=== PATIENT | female | born 1995 ===

== ENCOUNTER 2016-11-05 11:24 | Emergency (ER) | payer SELFPAY ==
[2016-11-05 11:24] VITALS: O2SAT 100
[2016-11-05 12:01] VITALS: BP 130/83; PULSE 111; RESP 18; TEMP 97.2
== END 2016-11-05 11:58 | disposition home or self-care (01) | DRG 125 ==
LOC: ED 11:24
DX: H10.9 Unspecified conjunctivitis (principal)
CPT/HCPCS: 99282; 99283

== ENCOUNTER 2016-11-06 00:46 | Emergency (ER) | payer SELFPAY ==
[2016-11-06 00:48] VITALS: O2SAT 100
[2016-11-06 01:00] VITALS: BP 134/84; PULSE 106; RESP 16; TEMP 96.6
[2016-11-06] MEDS ORDERED: DIPHENHYDRAMINE 25 MG CAP PO ONE (01:08)
== END 2016-11-06 01:30 | disposition home or self-care (01) | DRG 125 ==
LOC: ED 00:46
DX: H10.33 Unspecified acute conjunctivitis, bilateral (principal); R21 Rash and other nonspecific skin eruption
CPT/HCPCS: 99282; Q0163

== ENCOUNTER 2017-01-17 17:40 | Emergency (ER) | payer MEDICAID ==
[2017-01-17 18:11] VITALS: RESP 16; TEMP 97.5
[2017-01-17 18:20] LABS: BASOPHILS % (AUTO) 1 % (0-3); EOSINOPHILS % (AUTO) 4 % (0-9); HEMATOCRIT 40 % (35-47); MEAN CORPUSCULAR HGB CONC 34.1 gm/dl (32.0-36.0); MEAN CORPUSCULAR VOLUME 85 fL (81-99); MONOCYTES % (AUTO) 3.7 % (0-12); NEUTROPHILS % (AUTO) 63.1 % (37-80)
[2017-01-17] MEDS ORDERED: ALUMINUM/MAGNESIUM 30 ML SUS PO ONE (18:28)
[2017-01-17] MEDS ORDERED: LIDOCAINE HCL 2% (VISCOUS) 20 ML SOL MT ONE (18:28)
[2017-01-17] MEDS ORDERED: ALUMINUM/MAGNESIUM 30 ML SUS ONE (18:31)
[2017-01-17] MEDS ORDERED: LIDOCAINE HCL 2% (VISCOUS) 20 ML SOL ONE (18:32)
[2017-01-17 18:34] LABS: ALBUMIN 3.5 gm/dl (3.4-5.0); CALCIUM 8.9 mg/dl (8.5-10.1); POTASSIUM 3.9 mMol/L (3.5-5.1)
[2017-01-17 19:44] VITALS: O2SAT 99
[2017-01-17 19:45] VITALS: BP 122/68
[2017-01-17 19:46] VITALS: PULSE 91
== END 2017-01-17 19:36 | disposition home or self-care (01) | DRG 392 ==
LOC: ED 17:40
DX: R10.13 Epigastric pain (principal)
CPT/HCPCS: 36415; 80053; 85025; 99283

== ENCOUNTER 2017-03-10 12:30 | Emergency (ER) | payer MEDICAID ==
[2017-03-10 12:30] VITALS: O2SAT 99
[2017-03-10] MEDS ORDERED: KETOROLAC TROMETHAMINE 30 MG/ML SOL IM ONE (13:23)
[2017-03-10] MEDS ORDERED: KETOROLAC TROMETHAMINE 30 MG/ML SOL ONE (13:24)
[2017-03-10 13:36] VITALS: BP 114/77; PULSE 102; RESP 16; TEMP 97.1
[2017-03-10] MEDS ORDERED: LIDOCAINE HCL 2% (VISCOUS) 20 ML SOL MT ONE (13:51)
[2017-03-10] MEDS ORDERED: LIDOCAINE HCL 2% (VISCOUS) 20 ML SOL ONE (14:13)
== END 2017-03-10 14:30 | disposition home or self-care (01) | DRG 159 ==
LOC: ED 12:30
DX: K08.89 Other specified disorders of teeth and supporting structures (principal)
CPT/HCPCS: 96372; 99282; 99283; J1885

== ENCOUNTER 2017-06-12 20:16 | Emergency (ER) | payer OTHER ==
[2017-06-12 20:30] VITALS: BP 132/75; PULSE 98; RESP 18; TEMP 98.2; O2SAT 98
[2017-06-12] MEDS ORDERED: OXYCODONE HYDROCHLORIDE 5 MG TAB PO PRN (21:47)
[2017-06-12] MEDS ORDERED: OXYCODONE HYDROCHLORIDE 5 MG TAB ONE (21:50)
== END 2017-06-12 22:00 | disposition home or self-care (01) | DRG 781 ==
LOC: ED 20:16
DX: O26.892 Other specified pregnancy related conditions, second trimester (principal); M54.31 Sciatica, right side; Z3A.20 20 weeks gestation of pregnancy
CPT/HCPCS: 99282

== ENCOUNTER 2017-08-19 17:56 | Emergency (ER) | payer MEDICAID ==
[2017-08-19 17:56] VITALS: O2SAT 98
[2017-08-19 18:30] VITALS: TEMP 97.3
[2017-08-19 18:41] LABS: BASOPHILS % (AUTO) 0 % (0-3); EOSINOPHILS % (AUTO) 3 % (0-9); HEMATOCRIT 35 % (35-47); MEAN CORPUSCULAR HGB CONC 33.8 gm/dl (32.0-36.0); MEAN CORPUSCULAR VOLUME 89 fL (81-99); MONOCYTES % (AUTO) 5.2 % (0-12); NEUTROPHILS % (AUTO) 73.3 % (37-80)
[2017-08-19 18:46] LABS: APPEARANCE,URINE Clear; BILIRUBIN,URINE NEGATIVE (NEGATIVE); COLOR,URINE Yellow; GLUCOSE, URINE (UA) NEGATIVE (NEGATIVE); KETONES,URINE TRACE (NEGATIVE); LEUKOCYTE ESTERASE ,URINE NEGATIVE (NEGATIVE); NITRATE,URINE NEGATIVE (NEGATIVE); OCCULT BLOOD,URINE NEGATIVE (NEG-TRACE); UROBILINOGEN,URINE 0.2 (0.2-1.0 EU)
[2017-08-19 18:52] LABS: ALBUMIN 2.4 gm/dl (3.4-5.0); CALCIUM 8.8 mg/dl (8.5-10.1)
[2017-08-19 18:53] LABS: RBC,URINE 0-2 (0-3AV/HPF)
[2017-08-19] MEDS ORDERED: ONDANSETRON 4 MG ODT BU ONE (19:39)
[2017-08-19] MEDS ORDERED: APAP/HYDROCODONE 325/5 TAB PO ONE (19:39)
[2017-08-19 19:44] VITALS: BP 124/64; PULSE 100; RESP 18
[2017-08-19] MEDS ORDERED: ONDANSETRON 4 MG ODT ONE (19:47)
[2017-08-19] MEDS ORDERED: APAP/HYDROCODONE 325/5 TAB ONE (19:47)
== END 2017-08-19 20:02 | disposition home or self-care (01) | DRG 781 ==
LOC: ED 17:56
DX: O26.893 Other specified pregnancy related conditions, third trimester (principal); R07.81 Pleurodynia; Z3A.33 33 weeks gestation of pregnancy
CPT/HCPCS: 36415; 80053; 81001; 85025; 99283

== ENCOUNTER 2017-10-08 05:07 | Inpatient (IN) | payer MEDICAID, OTHER ==
[2017-10-08] MEDS: LACTATED RINGERS 1,000 ML IV SCH ×5 (05:20→15:48)
[2017-10-08] MEDS ORDERED: SODIUM CHLORIDE 0.9% 50 ML 25 ML IV PRN (05:44)
[2017-10-08] MEDS ORDERED: CITRIC ACID/SODIUM CITRATE SOL PO SCH (05:45)
[2017-10-08] MEDS ORDERED: OXYTOCIN 10000 MU/ML SOL ONE (06:15)
[2017-10-08] MEDS ORDERED: MORPHINE SULFATE 0.5 MG/ML SOL ONE (06:15)
[2017-10-08] MEDS ORDERED: ONDANSETRON HCL 4 MG/2 ML SOL ONE (06:15)
[2017-10-08] MEDS ORDERED: PHENYLEPHRINE HYDROCHLORIDE 10 MG/ML SOL ONE (06:15)
[2017-10-08] MEDS ORDERED: LACTATED RINGERS 1,000 ML with OXYTOCIN 10000 MU/ML 20 MU IV ONE (06:45)
[2017-10-08] MEDS ORDERED: MIDAZOLAM 2 MG/2 ML SOL ONE (06:52)
[2017-10-08] MEDS: CEFAZOLIN (PREMIX) 1 GM 1 GM/50 ML SOL IV SCH ×2 (07:00→13:29)
[2017-10-08] MEDS ORDERED: FENTANYL 100MCG/2ML SOL ONE ×2 (07:10→07:37)
[2017-10-08] MEDS ORDERED: CEFAZOLIN SODIUM 1 GM PDS ONE ×2 (07:17→13:17)
[2017-10-08 07:42] LABS: APPEARANCE,URINE CLEAR; BILIRUBIN,URINE NEGATIVE (NEGATIVE); COLOR,URINE YELLOW; GLUCOSE, URINE (UA) NEGATIVE (NEGATIVE); KETONES,URINE NEGATIVE (NEGATIVE); LEUKOCYTE ESTERASE ,URINE NEGATIVE (NEGATIVE); NITRATE,URINE NEGATIVE (NEGATIVE); OCCULT BLOOD,URINE NEGATIVE (NEG-TRACE)
[2017-10-08 07:43] LABS: RBC,URINE 0-1 (0-3AV/HPF); WBC,URINE 0-1 (0-5AV/HPF)
[2017-10-08] MEDS ORDERED: DIPHENHYDRAMINE 50 MG/ML SOL ONE ×2 (07:51→14:14)
[2017-10-08] MEDS ORDERED: KETOROLAC TROMETHAMINE 30 MG/ML SOL ONE (08:08)
[2017-10-08] MEDS ORDERED: ONDANSETRON HCL 4 MG/2 ML SOL IV PRN (08:43)
[2017-10-08] MEDS ORDERED: WITCH HAZEL 1 EA PAD TOP PRN (08:43)
[2017-10-08] MEDS ORDERED: FLEET ENEMA PR PRN (08:43)
[2017-10-08] MEDS ORDERED: BISACODYL 10 MG SUP PR PRN (08:43)
[2017-10-08] MEDS ORDERED: METHYLERGONOVINE MALEATE 0.2 MG TAB PO PRN (08:43)
[2017-10-08] MEDS ORDERED: BENZOCAINE/MENTHOL 1 SPR TOP PRN (08:43)
[2017-10-08] MEDS ORDERED: KETOROLAC TROMETHAMINE 30 MG/ML SOL IV PRN (08:43)
[2017-10-08] MEDS: DOCUSATE SODIUM 100 MG SGL PO SCH ×2 (09:00→20:29)
[2017-10-08] MEDS: APAP/HYDROCODONE 325/5 TAB PO PRN ×2 (09:22→13:24)
[2017-10-08] MEDS ORDERED: DIPHENHYDRAMINE 50 MG/ML SOL IV PRN (14:17)
[2017-10-08] MEDS ORDERED: LORAZEPAM 0.5 MG TAB PO ONE (16:26)
[2017-10-08] MEDS ORDERED: LORAZEPAM 0.5 MG TAB ONE (17:27)
[2017-10-08] MEDS ORDERED: APAP/OXYCODONE 325/5 TAB ONE ×2 (17:55→22:18)
[2017-10-08] MEDS: APAP/OXYCODONE 325/5 TAB PO PRN ×2 (18:01→22:21)
[2017-10-08] MEDS ORDERED: NICOTINE 7 MG PATCH TD SCH (20:00)
[2017-10-08] MEDS: DIPHENHYDRAMINE 25 MG CAP PO PRN ×2 (20:28→21:13)
[2017-10-08] MEDS: IBUPROFEN 600 MG TAB PO PRN (21:11)
[2017-10-08] MEDS ORDERED: TEMAZEPAM 15MG 15 MG CAP ONE (22:18)
[2017-10-08] MEDS: TEMAZEPAM 15MG 15 MG CAP PO PRN (22:21)
[2017-10-09] MEDS ORDERED: APAP/OXYCODONE 325/5 TAB ONE ×7 (02:37→19:01)
[2017-10-09] MEDS: APAP/OXYCODONE 325/5 TAB PO PRN ×5 (02:38→19:02)
[2017-10-09] MEDS: IBUPROFEN 600 MG TAB PO PRN ×4 (03:10→22:11)
[2017-10-09] MEDS ORDERED: NICOTINE 7 MG PATCH TD SCH (08:00)
[2017-10-09] MEDS: DIPHENHYDRAMINE 25 MG CAP PO PRN ×2 (08:08→18:34)
[2017-10-09 08:55] LABS: CALCIUM 8.2 mg/dl (8.5-10.1); POTASSIUM 4.1 mMol/L (3.5-5.1)
[2017-10-09] MEDS: DOCUSATE SODIUM 100 MG SGL PO SCH ×2 (09:05→21:43)
[2017-10-09] MEDS ORDERED: HYDROCORTISONE 1% CREAM 1 APPL CRE TOP ONE ×2 (09:38→18:33)
[2017-10-09] MEDS: HYDROCORTISONE 1% CREAM 1 APPL CRE TOP SCH ×3 (09:45→21:44)
[2017-10-09] MEDS ORDERED: OXYCODONE HYDROCHLORIDE 5 MG TAB PO ONE (12:49)
[2017-10-09] MEDS ORDERED: OXYCODONE HYDROCHLORIDE 5 MG TAB ONE ×2 (12:56→21:40)
[2017-10-09] MEDS ORDERED: IBUPROFEN 600 MG TAB ONE (16:08)
[2017-10-09] MEDS ORDERED: DIPHENHYDRAMINE 25 MG CAP ONE (18:32)
[2017-10-09] MEDS ORDERED: OXYCODONE HYDROCHLORIDE 5 MG TAB PO PRN (21:13)
[2017-10-09] MEDS ORDERED: TEMAZEPAM 15MG 15 MG CAP ONE (22:09)
[2017-10-09] MEDS: TEMAZEPAM 15MG 15 MG CAP PO PRN (22:11)
[2017-10-10] MEDS ORDERED: APAP/OXYCODONE 325/5 TAB ONE ×4 (00:48→15:57)
[2017-10-10] MEDS: APAP/OXYCODONE 325/5 TAB PO PRN ×4 (00:49→15:58)
[2017-10-10] MEDS: IBUPROFEN 600 MG TAB PO PRN ×3 (04:17→14:50)
[2017-10-10 07:32] VITALS: O2SAT 96
[2017-10-10] MEDS: DOCUSATE SODIUM 100 MG SGL PO SCH (09:08)
[2017-10-10] MEDS ORDERED: HYDROCORTISONE 1% CREAM 1 APPL CRE TOP ONE (10:07)
[2017-10-10] MEDS: HYDROCORTISONE 1% CREAM 1 APPL CRE TOP SCH (10:12)
[2017-10-10] MEDS ORDERED: INFLUENZA VIRUS VACCINE 0.5 ML SUS IM ONE ×2 (12:32→15:49)
[2017-10-10] MEDS ORDERED: PNEUMOCOCCAL VACCINE 0.5 ML SOL IM ONE ×2 (14:15→15:47)
[2017-10-10 16:11] VITALS: BP 129/79; PULSE 91; RESP 20; TEMP 97.7
== END 2017-10-10 18:35 | disposition home or self-care (01) | DRG 766 ==
LOC: OB 05:07 → PREOBSVTOIN 10:31
PROVIDERS: ADMIT Family Medicine; ATTEND Family Medicine
PROC: 0UB70ZZ Excision of Bilateral Fallopian Tubes, Open Approach (ICD-10-PCS; 2017-10-08)
PROC: 10D00Z1 Extraction of Products of Conception, Low, Open Approach (ICD-10-PCS; principal; 2017-10-08 07:00)
DX: O34.219 Maternal care for unspecified type scar from previous cesarean delivery (principal); Z30.2 Encounter for sterilization; Z37.0 Single live birth; Z3A.39 39 weeks gestation of pregnancy
CPT/HCPCS: 36415; 59025; 80053; 81001; 85018; 90686; 90732; 99070; J0690; J1200; J1885; J2250; J2274; J2405; J2590; J3010; A9270-GY; G0008; J2370

== ENCOUNTER 2017-11-07 17:08 | Emergency (ER) | payer OTHER ==
[2017-11-07 17:31] VITALS: BP 145/98; PULSE 86; RESP 18; TEMP 97.8; O2SAT 99
[2017-11-07 17:40] LABS: APPEARANCE,URINE Cloudy; BILIRUBIN,URINE NEGATIVE (NEGATIVE); COLOR,URINE Yellow; GLUCOSE, URINE (UA) NEGATIVE (NEGATIVE); KETONES,URINE NEGATIVE (NEGATIVE); LEUKOCYTE ESTERASE ,URINE 3+ (NEGATIVE); NITRATE,URINE NEGATIVE (NEGATIVE); OCCULT BLOOD,URINE 2+ (NEG-TRACE); PH,URINE 6.5; UROBILINOGEN,URINE 0.2 (0.2-1.0 EU)
[2017-11-07 17:52] LABS: WBC,URINE TNTC (0-5AV/HPF)
== END 2017-11-07 18:43 | disposition home or self-care (01) | DRG 690 ==
LOC: ED 17:08
DX: N30.00 Acute cystitis without hematuria (principal)
CPT/HCPCS: 81001; 87077; 87088; 87186; 99282

== ENCOUNTER 2017-11-15 17:34 | Emergency (ER) | payer OTHER ==
[2017-11-15 17:55] VITALS: RESP 18; TEMP 98.2
[2017-11-15] MEDS ORDERED: KETOROLAC TROMETHAMINE 30 MG/ML SOL IM ONE (18:31)
[2017-11-15] MEDS ORDERED: ACETAMINOPHEN 500 MG 500 MG TAB PO ONE (18:31)
[2017-11-15] MEDS ORDERED: CYCLOBENZAPRINE 10 MG TAB PO ONE (18:31)
[2017-11-15] MEDS ORDERED: ACETAMINOPHEN 500 MG 500 MG TAB ONE (18:35)
[2017-11-15] MEDS ORDERED: CYCLOBENZAPRINE 10 MG TAB ONE (18:35)
[2017-11-15] MEDS ORDERED: KETOROLAC TROMETHAMINE 30 MG/ML SOL ONE (18:35)
[2017-11-15 18:53] VITALS: BP 131/87; PULSE 75; O2SAT 99
== END 2017-11-15 18:45 | disposition home or self-care (01) | DRG 552 ==
LOC: ED 17:34
DX: M53.3 Sacrococcygeal disorders, not elsewhere classified (principal); W00.0XXA Fall on same level due to ice and snow, initial encounter
CPT/HCPCS: 72120; 72220; 99283; J1885; A9270-GY

== ENCOUNTER 2018-02-11 18:08 | Emergency (ER) | payer OTHER ==
[2018-02-11 18:33] VITALS: TEMP 97.3
[2018-02-11] MEDS ORDERED: ONDANSETRON HCL 4 MG/2 ML SOL IM ONE (18:49)
[2018-02-11] MEDS ORDERED: HYDROMORPHONE HCL 2 MG/ML SOL IM ONE ×2 (18:49→20:31)
[2018-02-11] MEDS ORDERED: KETOROLAC TROMETHAMINE 30 MG/ML SOL IM ONE (18:49)
[2018-02-11] MEDS ORDERED: HYDROMORPHONE HCL 2 MG/ML SOL ONE ×2 (18:52→20:33)
[2018-02-11] MEDS ORDERED: ONDANSETRON HCL 4 MG/2 ML SOL ONE (18:53)
[2018-02-11] MEDS ORDERED: KETOROLAC TROMETHAMINE 30 MG/ML SOL ONE (18:53)
[2018-02-11] MEDS ORDERED: CYCLOBENZAPRINE 10 MG TAB PO ONE (20:54)
[2018-02-11] MEDS ORDERED: CYCLOBENZAPRINE 10 MG TAB ONE (20:57)
[2018-02-11 21:25] VITALS: RESP 20
[2018-02-11 21:26] VITALS: BP 121/78; PULSE 80; O2SAT 98
== END 2018-02-11 21:12 | disposition home or self-care (01) | DRG 552 ==
LOC: ED 18:08
DX: M54.41 Lumbago with sciatica, right side (principal); X50.9XXA Other and unspecified overexertion or strenuous movements or postures, initial encounter
CPT/HCPCS: 72131; 96372; 99283; 99285; J1170; J1885; J2405; A9270-GY

== ENCOUNTER 2018-09-04 03:41 | Emergency (ER) | payer OTHER ==
[2018-09-04 03:49] VITALS: RESP 20; TEMP 97.2
[2018-09-04] MEDS ORDERED: KETOROLAC TROMETHAMINE 30 MG/ML SOL IM ONE (03:51)
[2018-09-04] MEDS ORDERED: AUGMENTIN(FRIDGE) 400 MG/5 ML PO ONE (03:51)
[2018-09-04] MEDS ORDERED: KETOROLAC TROMETHAMINE 30 MG/ML SOL ONE (03:52)
[2018-09-04] MEDS ORDERED: AUGMENTIN(FRIDGE) 400 MG/5 ML ONE (03:57)
[2018-09-04] MEDS ORDERED: APAP/HYDROCODONE 1 EACH TABLET PO ONE (04:04)
[2018-09-04] MEDS ORDERED: APAP/HYDROCODONE 1 EACH TABLET ONE (04:06)
[2018-09-04 04:26] VITALS: BP 127/90; PULSE 72; O2SAT 97
== END 2018-09-04 04:25 | disposition home or self-care (01) | DRG 159 ==
LOC: ED 03:41
DX: K04.7 Periapical abscess without sinus (principal)
CPT/HCPCS: 96372; 99282; 99283; J1885; A9270-GY

== ENCOUNTER 2018-10-19 08:40 | Emergency (ER) | payer OTHER ==
[2018-10-19 08:57] VITALS: RESP 18; TEMP 97.7
[2018-10-19] MEDS ORDERED: BACITRACIN 500 U/GM OIN TOP ONE ×2 (09:41→10:00)
[2018-10-19 09:59] VITALS: BP 121/83; PULSE 88; O2SAT 98
== END 2018-10-19 10:10 | disposition home or self-care (01) | DRG 603 ==
LOC: ED 08:40
DX: L02.01 Cutaneous abscess of face (principal)
CPT/HCPCS: 42310; 99282; A6402; A9270-GY

== ENCOUNTER 2018-11-21 14:28 | Emergency (ER) | payer OTHER ==
[2018-11-21 15:11] VITALS: BP 144/83; PULSE 91; RESP 16; TEMP 97.9; O2SAT 100
== END 2018-11-21 15:19 | disposition home or self-care (01) | DRG 603 ==
LOC: ED 14:28
DX: L02.31 Cutaneous abscess of buttock (principal)
CPT/HCPCS: 99282

== ENCOUNTER 2018-11-23 09:24 | Inpatient (IN) | payer OTHER | END 2018-11-24 14:05 | disposition home or self-care (01) | LOC: ED 09:24 → ACUTE CARE 12:59 ==

== ENCOUNTER 2019-03-25 05:34 | Emergency (ER) | payer SELFPAY ==
[2019-03-25 05:34] VITALS: O2SAT 98
[2019-03-25 05:43] VITALS: BP 140/94; PULSE 100; RESP 20; TEMP 97
[2019-03-25] MEDS ORDERED: APAP/HYDROCODONE 1 EACH TABLET PO ONE (05:55)
[2019-03-25] MEDS ORDERED: APAP/HYDROCODONE 1 EACH TABLET ONE (05:56)
[2019-03-25] MEDS ORDERED: CLINDAMYCIN HYDROCHLORIDE 150 MG CAP PO SCH (06:00)
[2019-03-25] MEDS ORDERED: AMOXIL/CLAVULANATE 400/5 ML PDR ONE (06:02)
[2019-03-25] MEDS ORDERED: AMOXIL/CLAVULANATE 400/5 ML PDR PO ONE (06:05)
[2019-03-25] MEDS ORDERED: AMOXIL/CLAVULANATE 875/125 TAB PO SCH (09:00)
== END 2019-03-25 06:10 | disposition home or self-care (01) | DRG 159 ==
LOC: ED 05:34
DX: K02.9 Dental caries, unspecified (principal)
CPT/HCPCS: 99282; A9270-GY